=== PATIENT | male | born 1990 | race Caucasian/White ===

== ENCOUNTER 2018-04-21 19:18 | Emergency (ER) | payer SELFPAY ==
[~2018-04-21] VITALS: Ht 177.8 cm; Wt 73.0 kg
[2018-04-21] MEDS ORDERED: DIPHENHYDRAMINE 25MG CAPSULE PO ONE (22:45)
[2018-04-21 22:53] VITALS: BP 137/83
== END 2018-04-21 22:54 | disposition home or self-care (01) ==
LOC: ER 19:18
DX: A60.01 Herpesviral infection of penis (principal); L24.4 Irritant contact dermatitis due to drugs in contact with skin
CPT/HCPCS: 99283; Q0163